=== PATIENT | female | born 1960 | race Caucasian/White ===

== ENCOUNTER 2023-07-20 21:45 | Emergency (ER) | payer OTHER ==
[~2023-07-20] VITALS: Ht 165.1 cm; Wt 72.6 kg
[~2023-07-20 21:45] MED LIST: ESCI20TA PO; HYDR-3980 PO
[2023-07-20] MEDS: MORPHINE SULFATE 4 MG/1 ML DISP.SYRIN IM ONE (22:28)
[2023-07-20] MEDS: ONDANSETRON ODT 4 MG TAB.RAPDIS SL ONE (22:29)
[2023-07-20] MEDS ORDERED: MORPHINE SULFATE 4 MG/1 ML DISP.SYRIN ONE (22:30)
[2023-07-20] MEDS ORDERED: ONDANSETRON ODT 4 MG TAB.RAPDIS ONE (22:30)
[2023-07-20] MEDS: PROPOFOL 200 MG/20 ML BOTTLE IV ONE (23:30)
[2023-07-20] MEDS ORDERED: PROPOFOL 200 MG/20 ML BOTTLE ONE (23:56)
[2023-07-21] MEDS: PROPOFOL 200 MG/20 ML BOTTLE IV ONE (00:33)
[2023-07-21] MEDS ORDERED: ONDANSETRON 4 MG/2 ML VIAL ONE (01:40)
[2023-07-21] MEDS ORDERED: MORPHINE SULFATE 4 MG/1 ML DISP.SYRIN ONE (01:41)
[2023-07-21 01:45] LABS: BASOPHILS # (AUTO) 0.3 K/UL (0.0-0.2); BASOPHILS % (AUTO) 2.6 % (0.0-2.0); EOSINOPHILS # (AUTO) 0.4 K/uL (0.0-0.7); EOSINOPHILS % (AUTO) 3.3 % (0.0-7.0); HEMATOCRIT 28.8 % (31.2-41.9); HEMOGLOBIN 9.5 g/dL (10.9-14.3); LYMPHOCYTES # (AUTO) 2.2 K/uL (0.8-4.8); LYMPHOCYTES % (AUTO) 19.3 % (20.5-51.5); MEAN CORPUSCULAR HEMOGLOBIN 31.4 uug (24.7-32.8); MEAN CORPUSCULAR HGB CONC 33 g/dL (32.3-35.6); MEAN CORPUSCULAR VOLUME 95.6 fL (75.5-95.3); MONOCYTES # (AUTO) 0.6 K/uL (0.1-1.30); MONOCYTES % (AUTO) 5.6 % (0.0-11.0); NEUTROPHILS # (AUTO) 7.8 K/uL (1.8-8.9); NEUTROPHILS % (AUTO) 69.2 % (38.5-71.5); PLATELET COUNT (AUTO) 469 K/uL (179-408); RED BLOOD CELL COUNT(AUTO) 3.01 MIL/uL (3.63-4.92); RED CELL DISTRIBUTION WIDTH 13.8 % (12.3-17.7); WHITE BLOOD COUNT (AUTO) 11.2 K/uL (3.8-11.8)
[2023-07-21 01:46] LABS: DIFFERENTIAL COMMENT 1
[2023-07-21 01:51] LABS: CALCIUM 8.4 mg/dL (8.5-10.1); CREATININE 0.7 mg/dL (0.6-1.3); POTASSIUM 3.2 mmol/L (3.5-5.1)
[2023-07-21] MEDS: ONDANSETRON 4 MG/2 ML VIAL IV ONE (01:54)
[2023-07-21] MEDS: MORPHINE SULFATE 4 MG/1 ML DISP.SYRIN IV ONE (01:54)
[2023-07-21 01:57] LABS: BILIRUBIN,TOTAL 0.3 mg/dL (0.2-1.0); TOTAL PROTEIN, SERUM 6.1 g/dL (6.4-8.2)
[2023-07-21] MEDS ORDERED: ONDANSETRON 4 MG/2 ML VIAL IV PRN (04:00)
[2023-07-21] MEDS ORDERED: HYDROCODONE/APAP 5-325MG TABLET PO PRN (04:00)
[2023-07-21] MEDS: POTASSIUM CHLORIDE 20 MEQ TAB.PRT.SR PO ONE (04:00)
[2023-07-21] MEDS ORDERED: POTASSIUM CHLORIDE 20 MEQ TAB.PRT.SR ONE (05:09)
[2023-07-21] MEDS ORDERED: ACETAMINOPHEN 325 MG TABLET ONE (05:29)
[2023-07-21] MEDS: ACETAMINOPHEN 325 MG TABLET PO PRN (05:32)
[2023-07-21] MEDS ORDERED: KETOROLAC TROMETHAMINE 60 MG INJ IM ONE (07:43)
[2023-07-21] MEDS: KETOROLAC TROMETHAMINE 60 MG INJ IM ONE (07:48)
[2023-07-21 08:42] VITALS: BP 140/85; TEMP 97.7; O2SAT 99
[2023-07-21] MEDS ORDERED: ESCITALOPRAM OXALATE 10 MG TABLET PO SCH (09:00)
[2023-07-21] MEDS ORDERED: ENOXAPARIN SODIUM 40 MG/0.4 ML DISP.SYRIN SQ SCH (09:00)
[2023-08-26] MEDS ORDERED: DOCU-141 PO (14:37)
== END 2023-07-21 08:44 | disposition left against medical advice (07) ==
LOC: ER 21:48
DX: T84.020A Dislocation of internal right hip prosthesis, initial encounter (principal); Z79.899 Other long term (current) drug therapy; Z20.822 Contact with and (suspected) exposure to COVID-19; X50.1XXA Overexertion from prolonged static or awkward postures, initial encounter; Y93.89 Activity, other specified; Y92.89 Other specified places as the place of occurrence of the external cause; Y99.8 Other external cause status
CPT/HCPCS: 99285; 27265; 73502; 99152; 96372 ×2; 96374; 96375; 87426; 80053; 85025; 36415; 73501; J2270 ×2; J1885; J2405; A4606; A4663; G0500; J3490; Q0162

== ENCOUNTER 2023-08-25 | Inpatient (IN) | payer OTHER ==
[~2023-08-25] VITALS: Ht 165.1 cm; Wt 73.5 kg
[2023-08-25] MEDS ORDERED: HYDROMORPHONE 1 MG/1 ML DISP.SYRIN ONE ×2 (00:13→02:24)
[2023-08-25] MEDS: HYDROMORPHONE 1 MG/1 ML DISP.SYRIN IV ONE ×2 (00:19→02:30)
[2023-08-25] MEDS: PROPOFOL 200 MG/20 ML BOTTLE IV ONE (00:53)
[2023-08-25] MEDS: PROPOFOL 1,000 MG/100 ML BOTTLE IV ONE (01:15)
[2023-08-25] MEDS ORDERED: ONDANSETRON 4 MG/2 ML VIAL ONE (02:29)
[2023-08-25] MEDS: ONDANSETRON 4 MG/2 ML VIAL IV ONE (02:35)
[2023-08-25] MEDS ORDERED: BENA20TA9 PO (04:05)
[2023-08-25] MEDS ORDERED: CARI350T27 PO (04:05)
[2023-08-25] MEDS ORDERED: IV NS 1000 ML 1,000 ML IV SCH (04:15)
[2023-08-25] MEDS ORDERED: ACETAMINOPHEN 325 MG TABLET PO PRN (04:15)
[2023-08-25 04:25] LABS: BASOPHILS % (AUTO) 0.3 % (0.0-2.0); EOSINOPHILS % (AUTO) 0.2 % (0.0-7.0); HEMATOCRIT 37.9 % (31.2-41.9); HEMOGLOBIN 12.3 g/dL (10.9-14.3); LYMPHOCYTES % (AUTO) 16.9 % (20.5-51.5); MEAN CORPUSCULAR HEMOGLOBIN 30.6 uug (24.7-32.8); MEAN CORPUSCULAR HGB CONC 33 g/dL (32.3-35.6); MONOCYTES # (AUTO) 0.6 K/uL (0.1-1.30); NEUTROPHILS # (AUTO) 9.1 K/uL (1.8-8.9); NEUTROPHILS % (AUTO) 77.6 % (38.5-71.5); PLATELET COUNT (AUTO) 317 K/uL (179-408); RED BLOOD CELL COUNT(AUTO) 4.03 MIL/uL (3.63-4.92); RED CELL DISTRIBUTION WIDTH 14.9 % (12.3-17.7); WHITE BLOOD COUNT (AUTO) 11.8 K/uL (3.8-11.8)
[2023-08-25] MEDS ORDERED: CARISOPRODOL 350 MG TABLET PO PRN (04:30)
[2023-08-25 04:41] LABS: DIFFERENTIAL COMMENT 1
[2023-08-25 04:52] LABS: ALBUMIN 3.6 g/dL (3.4-5.0); BILIRUBIN,TOTAL 0.2 mg/dL (0.2-1.0); CALCIUM 8.4 mg/dL (8.5-10.1); CREATININE 0.5 mg/dL (0.6-1.3); POTASSIUM 4.2 mmol/L (3.5-5.1); TOTAL PROTEIN, SERUM 6.7 g/dL (6.4-8.2)
[2023-08-25] MEDS: IV NS 1000 ML 1,000 ML IV PRN (06:21)
[2023-08-25 06:23] VITALS: BP 152/90; TEMP 97.8; O2SAT 99
[2023-08-25] MEDS: MORPHINE SULFATE 2 MG/1 ML DISP.SYRIN IV PRN (06:52)
[2023-08-25 09:00] VITALS: BP 149/79; TEMP 97.8; O2SAT 98
[2023-08-25] MEDS ORDERED: Medication Not On Formulary EA (Escitalopram Oxalate (Lexapro) 1 TAB) PO SCH (09:00)
[2023-08-25] MEDS: ESCITALOPRAM OXALATE 10 MG TABLET PO SCH (09:15)
[2023-08-25] MEDS: ONDANSETRON 4 MG/2 ML VIAL IV PRN (09:15)
[2023-08-25] MEDS: BENAZEPRIL HCL 20 MG TABLET PO SCH (09:18)
[2023-08-25] MEDS ORDERED: CELE200C PO (10:09)
[2023-08-25] MEDS ORDERED: ASPI81TA31 PO (10:09)
[2023-08-25] MEDS ORDERED: IPRATROPIUM BROMIDE 0.5 MG/2.5 ML NEBU NEB PRN (10:30)
[2023-08-25] MEDS: ALPRAZOLAM 0.5 MG TABLET PO ONE ×2 (10:30→12:06)
[2023-08-25] MEDS: NICOTINE 14 MG/24HR PATCH TD SCH (10:30)
[2023-08-25] MEDS ORDERED: IV D5 1/2 NS 1000 ML 1,000 ML IV PRN (10:30)
[2023-08-25] MEDS ORDERED: ALBUTEROL SULFATE 2.5 MG/ 0.5 ML NEBU NEB PRN (10:30)
[2023-08-25] MEDS: FLUTICASONE/VILANTEROL 1 EACH BLST.W.DEV INH SCH (10:30)
[2023-08-25 12:00] VITALS: BP 134/68; TEMP 98.4; O2SAT 97
[2023-08-25] MEDS: hydrALAZINE HCL 50 MG TABLET PO ONE (12:05)
[2023-08-25] MEDS: FUROSEMIDE 20 MG/2 ML VIAL IV ONE (12:06)
[2023-08-25] MEDS ORDERED: FENTANYL CITRATE 100 MCG/2 ML AMPUL ONE (12:56)
[2023-08-25] MEDS ORDERED: MIDAZOLAM HCL 2 MG/2 ML VIAL ONE (12:56)
[2023-08-25 12:57] LABS: *BILIRUBIN,URIN NEGATIVE (NEGATIVE); *BLOOD, URINE NEGATIVE (NEGATIVE); *CLARITY,URINE CLEAR (CLEAR); *COLOR,URINE YELLOW (YELLOW); *KETONES,URINE NEGATIVE (NEGATIVE); *PROTEIN,URINE NEGATIVE (NEGATIVE); *UROBILINOGEN,URINE 0.2 E.U./dl (NORMAL); LEUKOCYTE ESTERASE ,URINE NEGATIVE (NEGATIVE); NITRITE, URINE NEGATIVE (NEGATIVE); UGLUCOSE NEGATIVE (NEGATIVE)
[2023-08-25] MEDS ORDERED: ALBUTEROL SULFATE 8 GM HFA.AER.AD ONE (13:14)
[2023-08-25 16:00] VITALS: BP 135/68; TEMP 97.6; O2SAT 97
[2023-08-25] MEDS: IV D5W-0.45% NS +20 KCL 1,000 ML IV PRN (16:13)
[2023-08-25] MEDS: CARISOPRODOL 350 MG TABLET PO PRN (18:19)
[2023-08-25] MEDS: HYDROCODONE/APAP 5-325MG TABLET PO PRN (20:13)
[2023-08-25 22:02] VITALS: BP 118/64; TEMP 97.7; O2SAT 98
[2023-08-25] MEDS: TEMAZEPAM 15 MG CAPSULE PO PRN (22:02)
[2023-08-26 05:17] VITALS: O2SAT 95
[2023-08-26 06:47] LABS: BASOPHILS % (AUTO) 0.5 % (0.0-2.0); EOSINOPHILS # (AUTO) 0.2 K/uL (0.0-0.7); EOSINOPHILS % (AUTO) 2.6 % (0.0-7.0); HEMATOCRIT 35.2 % (31.2-41.9); HEMOGLOBIN 11.3 g/dL (10.9-14.3); LYMPHOCYTES # (AUTO) 1.4 K/uL (0.8-4.8); LYMPHOCYTES % (AUTO) 17.9 % (20.5-51.5); MEAN CORPUSCULAR HEMOGLOBIN 30.3 uug (24.7-32.8); MEAN CORPUSCULAR HGB CONC 32 g/dL (32.3-35.6); MEAN CORPUSCULAR VOLUME 94.3 fL (75.5-95.3); MONOCYTES # (AUTO) 0.7 K/uL (0.1-1.30); MONOCYTES % (AUTO) 8.4 % (0.0-11.0); NEUTROPHILS # (AUTO) 5.7 K/uL (1.8-8.9); NEUTROPHILS % (AUTO) 70.6 % (38.5-71.5); PLATELET COUNT (AUTO) 284 K/uL (179-408); RED BLOOD CELL COUNT(AUTO) 3.74 MIL/uL (3.63-4.92); RED CELL DISTRIBUTION WIDTH 14.8 % (12.3-17.7)
[2023-08-26 06:49] VITALS: BP 137/62; TEMP 97.9; O2SAT 98
[2023-08-26 06:55] LABS: DIFFERENTIAL COMMENT 1
[2023-08-26 07:12] LABS: THYROID STIMULATING HORMONE 1.62 mIU/mL (0.358-3.740)
[2023-08-26 07:29] LABS: ALBUMIN 3.1 g/dL (3.4-5.0); BILIRUBIN,TOTAL 0.5 mg/dL (0.2-1.0); CALCIUM 8.5 mg/dL (8.5-10.1); CREATININE 0.6 mg/dL (0.6-1.3); PHOSPHOROUS 3.1 mg/dL (2.5-4.9); POTASSIUM 4.1 mmol/L (3.5-5.1); TOTAL PROTEIN, SERUM 6.1 g/dL (6.4-8.2)
[2023-08-26 09:00] VITALS: BP 122/54; TEMP 98.7; O2SAT 96
[2023-08-26] MEDS: ASPIRIN EC 81 MG TABLET.DR PO SCH (11:25)
[2023-08-26] MEDS ORDERED: DOCU-141 PO (14:37)
== END 2023-08-26 16:45 | disposition home health service (06) | DRG 349 ==
LOC: ER 00:03 → MEDSURG3 04:00
PROVIDERS: ATTEND Internal Medicine
PROC: 0SWRXJZ Revision of Synthetic Substitute in Right Hip Joint, Femoral Surface, External Approach (ICD-10-PCS; principal; 2023-08-25)
DX: T84.020A Dislocation of internal right hip prosthesis, initial encounter (principal); D68.59 Other primary thrombophilia; Z74.09 Other reduced mobility; Y79.2 Prosthetic and other implants, materials and accessory orthopedic devices associated with adverse incidents; Y92.095 Swimming-pool of other non-institutional residence as the place of occurrence of the external cause; J44.0 Chronic obstructive pulmonary disease with (acute) lower respiratory infection; J20.9 Acute bronchitis, unspecified; M15.9 Polyosteoarthritis, unspecified; E66.9 Obesity, unspecified; Z68.27 Body mass index [BMI] 27.0-27.9, adult; F41.9 Anxiety disorder, unspecified; F17.210 Nicotine dependence, cigarettes, uncomplicated; F32.A Depression, unspecified; I10 Essential (primary) hypertension; Z90.710 Acquired absence of both cervix and uterus; Z79.899 Other long term (current) drug therapy; R33.0 Drug induced retention of urine; T39.95XA Adverse effect of unspecified nonopioid analgesic, antipyretic and antirheumatic, initial encounter; Y92.538 Other ambulatory health services establishments as the place of occurrence of the external cause
CPT/HCPCS: 36415; 71045; 73501; 73502; 73503; 82652; 83550; 83735; 84100; 84443; 85025; 85730; 93005; C1758; G0378; J1170; J1940; J2250; J2270; J2405; J3010; J3490; J3535; J7040

== ENCOUNTER 2024-02-05 15:17 | Emergency (ER) | payer OTHER ==
[~2024-02-05] VITALS: Ht 165.1 cm; Wt 71.7 kg
[~2024-02-05 15:17] MED LIST changes: +ASPI81TA31 PO; +BENA20TA9 PO; +CARI350T27 PO; +CELE200C PO; +DOCU-141 PO
[2024-02-05 16:09] LABS: *BILIRUBIN,URIN NEGATIVE (NEGATIVE); *BLOOD, URINE NEGATIVE (NEGATIVE); *CLARITY,URINE CLEAR (CLEAR); *COLOR,URINE YELLOW (YELLOW); *KETONES,URINE NEGATIVE (NEGATIVE); *PROTEIN,URINE NEGATIVE (NEGATIVE); *UROBILINOGEN,URINE 0.2 E.U./dl (NORMAL); LEUKOCYTE ESTERASE ,URINE NEGATIVE (NEGATIVE); NITRITE, URINE NEGATIVE (NEGATIVE); UGLUCOSE NEGATIVE (NEGATIVE)
[2024-02-05] MEDS ORDERED: FOSFOMYCIN TROMETHAMINE 3 GM PACKET ONE (17:07)
[2024-02-05] MEDS ORDERED: TRAMADOL HCL 50 MG TABLET ONE (17:08)
[2024-02-05] MEDS: TRAMADOL HCL 50 MG TABLET PO ONE (17:13)
[2024-02-05] MEDS: FOSFOMYCIN TROMETHAMINE 3 GM PACKET PO ONE (17:13)
[2024-02-05] MEDS ORDERED: PHEN-705 PO (17:24)
[2024-02-05] MEDS ORDERED: TRAM50TA2 PO (17:24)
[2024-02-05 17:34] VITALS: BP 135/92; O2SAT 99
== END 2024-02-05 17:34 | disposition home or self-care (01) ==
LOC: ER 15:17
DX: G89.29 Other chronic pain (principal); M54.50 Low back pain, unspecified; Z79.82 Long term (current) use of aspirin; Z79.899 Other long term (current) drug therapy; Z96.641 Presence of right artificial hip joint
CPT/HCPCS: A4606; A4663

== ENCOUNTER 2024-12-29 10:25 | Emergency (ER) | payer MEDICARE, OTHER ==
[~2024-12-29] VITALS: Ht 165.1 cm; Wt 72.6 kg
[~2024-12-29 10:25] MED LIST changes: +PHEN-705 PO; +TRAM50TA2 PO
[2024-12-29 10:28] VITALS: BP 155/95
[2024-12-29 11:41] LABS: PLATELET COUNT (AUTO) 285 K/uL (179-408); RED BLOOD CELL COUNT(AUTO) 4.42 MIL/uL (3.63-4.92); RED CELL DISTRIBUTION WIDTH 13.1 % (12.3-17.7); WHITE BLOOD COUNT (AUTO) 7.7 K/uL (3.8-11.8)
[2024-12-29 11:47] LABS: CREATININE 0.6 mg/dL (0.6-1.3); SODIUM SERUM 140.0 mmol/L (136-145); UREA NITROGEN, BLOOD 9.0 mg/dL (7-18)
[2024-12-29] MEDS ORDERED: LORAZEPAM 1 MG TABLET ONE (11:47)
[2024-12-29] MEDS: LORAZEPAM 0.5 MG TABLET PO ONE (11:48)
[2024-12-29 11:53] LABS: ASPARTATE AMINOTRANSFERASE 20.0 U/L (15-37); TOTAL PROTEIN, SERUM 7.3 g/dL (6.4-8.2)
[2024-12-29] MEDS ORDERED: LORA-259 PO (13:44)
[2024-12-29] MEDS ORDERED: FLAS1EAC2 TP (13:44)
[2024-12-29] MEDS ORDERED: FLAS1KIT2 TP (13:44)
[2024-12-29 14:04] VITALS: BP 143/86; O2SAT 100
== END 2024-12-29 14:08 | disposition home or self-care (01) ==
LOC: ER 10:25
DX: F41.9 Anxiety disorder, unspecified (principal); G89.29 Other chronic pain; M54.9 Dorsalgia, unspecified; I10 Essential (primary) hypertension; Z79.82 Long term (current) use of aspirin; Z79.891 Long term (current) use of opiate analgesic; Z79.899 Other long term (current) drug therapy
CPT/HCPCS: 36415; 85025; A4606; A4663